=== PATIENT | male | born 1955 | race Caucasian/White ===

== ENCOUNTER 2022-06-21 08:18 | Inpatient (IN) | payer OTHER ==
[2022-06-21] VITALS (19 sets, daily range): BP systolic 71–115; BP diastolic 32–57
[~2022-06-21] VITALS: Ht 188 cm; Wt 136.9 kg
[2022-06-21] MEDS ORDERED: SODIUM CHLORIDE 0.9% 1,000 ML IV ONE ×2 (08:30)
[2022-06-21 08:57] LABS: Hematocrit 35.4 % (41.0-53.0)
[2022-06-21 08:58] LABS: Hemoglobin 11.6 g/dL (13.5-17.5); Mean Corpuscular Hemoglobin 26.8 pg (28.0-32.0); Mean Corpuscular Hgb Conc. 32.7 g/dL (32.0-36.0); Mean Corpuscular Volume 82.1 fL (80.0-100.0); Red Blood Cells 4.32 10^6/uL (4.5-5.90); Red Cell Distribution Width 16.4 % (11.8-14.3); White Blood Cell 13.9 10^3/uL (4.4-10.8)
[2022-06-21 09:10] LABS: Basophils % (manual) 0 (0.0-2.0); Blast Cells 0; Eosinophils % (manual) 0 (0-7); Myelocytes % 0; Promyelocytes % 0; Reactive Lymphocytes 0
[2022-06-21 09:12] LABS: Albumin 3.2 g/dL (3.4-5.0); Calcium 8.3 mg/dL (8.5-10.1); Potassium 3.9 mmol/L (3.5-5.1)
[2022-06-21 09:16] LABS: BUN/Creatinine Ratio 17.7; Bilirubin, Total 1.4 mg/dL (0.2-1.0); Total Protein 6.5 g/dL (6.4-8.2)
[2022-06-21 09:37] LABS: INR 1.42 (0.9-1.15); Partial Thromboplastin Time 38.7 sec (24.6-33.4)
[2022-06-21] MEDS ORDERED: dilTIAZem 25 MG/5 ML VIAL IV ONE ×2 (10:30→21:31)
[2022-06-21 11:25] LABS: Band Neutrophils % (manual) 23; Lymphocytes % (manual) 5 (10.0-50.0); Metamyelocytes % 5; Monocytes % (manual) 3 (0-12)
[2022-06-21 11:39] LABS: Alcohol, Urine < 3.0 mg/dL (0-10); Amphetamine Screen, Urine NEGATIVE (NEGATIVE); Barbiturate Scree,Urine NEGATIVE (NEGATIVE); Benzodiazephine Screen, Urine NEGATIVE (NEGATIVE); Cannabinoid Screen, Urine NEGATIVE (NEGATIVE); Cocaine Screen, Urine NEGATIVE (NEGATIVE); Opiate Scree,Urine NEGATIVE (NEGATIVE); Phencyclidine Screen, Urine NEGATIVE (NEGATIVE)
[2022-06-21 11:51] LABS: Urine Bacteria FEW /hpf (None Seen); Urine Blood 3+ /uL (Negative); Urine Mucus FEW (None Seen); Urine Specific Gravity 1.029 (1.001-1.035); Urine WBC 5 /hpf (0 - 3)
[2022-06-21] MEDS: dilTIAZem 125mg/125ml BAG KIT 100 ML IV SCH ×2 (11:53→23:36)
[2022-06-21] MEDS ORDERED: LORazepam 2MG/ML-1ML VIAL IV ONE ×2 (14:30→15:15)
[2022-06-21] MEDS ORDERED: ACETAMINOPHEN 325 MG TAB PO ONE (15:15)
[2022-06-21] MEDS ORDERED: DIGOXIN 0.25 MG TAB PO ONE (15:15)
[2022-06-21] MEDS ORDERED: MIDAZOLAM DRIP 50 mg/50mL 50 ML IV ONE (16:14)
[2022-06-21] MEDS ORDERED: SUCCINYLCHOLINE CHLORIDE 20 MG/ML 10ML VIAL IV ONE (16:15)
[2022-06-21] MEDS ORDERED: ETOMIDATE (2MG/ML) 20ML VIAL IV ONE ×2 (16:15→16:30)
[2022-06-21 16:17] LABS: Lactic Acid w/Reflex 4.3 mmol/L (0.4-2.0)
[2022-06-21] MEDS: MIDAZOLAM DRIP 50 mg/50mL 50 ML IV SCH ×2 (16:20→23:34)
[2022-06-21] MEDS: fentaNYL Drip 2500mCg/250mlNS 250 ML IV SCH ×2 (16:33→17:36)
[2022-06-21] MEDS ORDERED: NITROGLYCERIN 0.4 MG SL TAB SL PRN (16:45)
[2022-06-21] MEDS ORDERED: MORPHINE SULFATE INJ 2 MG/ml SYRG IV PRN (16:45)
[2022-06-21] MEDS ORDERED: SODIUM CHLORIDE 0.9% IV ONE (17:15)
[2022-06-21] MEDS ORDERED: AZITHROMYCIN 500MG/ 250ML 250 ML IV ONE (17:15)
[2022-06-21] MEDS ORDERED: PIPERACILLIN-TAZOB 2.25GM 50 ML IV ONE (17:15)
[2022-06-21] MEDS ORDERED: DEXTROSE (50%) 50ML SYRG IV PRN (17:45)
[2022-06-21] MEDS ORDERED: FUROSEMIDE 40 MG/4 ML VIAL IV ONE (18:00)
[2022-06-21] MEDS: ACCU-CHEK COMFORT CURVE STRIP VI SCH ×2 (18:00→23:46)
[2022-06-21] MEDS: NOREPINEPHRINE 8 MG/250ML KIT 250 ML IV SCH (18:41)
[2022-06-21] MEDS: InsuLIN REG 1unit/0.01ml Soln (100units/ml) SC SCH ×2 (18:55→23:48)
[2022-06-21] MEDS ORDERED: HEPARIN SODIUM (PORCINE) 5000 UNITS/ML 1ML VIAL SC SCH (22:00)
[2022-06-21] MEDS: SODIUM CHLORIDE 0.9% 1,000 ML IV SCH (23:09)
[2022-06-21] MEDS: PIPERACILLIN-TAZOB 3.375GM 100 ML IV SCH (23:10)
[2022-06-22] VITALS (98 sets, daily range): BP systolic 47–140; BP diastolic 29–67
[2022-06-22] MEDS ORDERED: AMIODARONE 450mg/250ml AE 250 ML IV SCH (01:00)
[2022-06-22] MEDS ORDERED: AMIODARONE HCL 150 MG in D5W 5% 100 ML IV ONE (01:00)
[2022-06-22] MEDS: PROPOFOL 100 ML IV SCH (01:00)
[2022-06-22] MEDS ORDERED: AMIODARONE HCL (50 MG/ ML) 3 ML VIAL IV ONE (01:10)
[2022-06-22] MEDS: MIDAZOLAM DRIP 50 mg/50mL 50 ML IV SCH ×5 (03:09→21:00)
[2022-06-22] MEDS: VASOPRESSIN 50 UNITS in D5W 5% 247.5 ML IV SCH (03:25)
[2022-06-22] MEDS: SODIUM CHLORIDE 0.9% 1,000 ML IV SCH (04:00)
[2022-06-22] MEDS ORDERED: ALBUMIN 5% 250 ML IV ONE (04:15)
[2022-06-22 04:35] LABS: Basophils # (auto) 0 10 ^3/uL (0-0.2); Basophils % (auto) 0.3 % (0.0-2.0); Eosinophils # (auto) 0 10 ^3/uL (0-0.8); Hematocrit 31.9 % (41.0-53.0); Hemoglobin 10.8 g/dL (13.5-17.5); Lymphocytes # (auto) 0.4 10 ^3/uL (0.4-5.4); Lymphocytes % (auto) 4.4 % (10.0-50.0); Mean Corpuscular Hemoglobin 27.8 pg (28.0-32.0); Mean Corpuscular Hgb Conc. 33.8 g/dL (32.0-36.0); Mean Corpuscular Volume 82.2 fL (80.0-100.0); Monocytes # (auto) 0.5 10 ^3/uL (0-1.3); Monocytes % (auto) 4.9 % (0.0-12.0); Neutrophils # (auto) 8.6 10 ^3/uL (1.6-8.6); Neutrophils % (auto) 90.4 % (37.0-80.0); Nucleated Red Blood Cells % 0.3 %; Red Blood Cells 3.87 10^6/uL (4.5-5.90); Red Cell Distribution Width 16.9 % (11.8-14.3); White Blood Cell 9.6 10^3/uL (4.4-10.8)
[2022-06-22] MEDS: PHENYLEPHRINE IV 250 ML IV SCH ×2 (04:38→11:23)
[2022-06-22 04:50] LABS: BUN/Creatinine Ratio 14.9; Calcium 6.8 mg/dL (8.5-10.1); Potassium 4.6 mmol/L (3.5-5.1)
[2022-06-22] MEDS: ACCU-CHEK COMFORT CURVE STRIP VI SCH ×3 (06:16→17:58)
[2022-06-22] MEDS: InsuLIN REG 1unit/0.01ml Soln (100units/ml) SC SCH ×3 (06:17→17:52)
[2022-06-22] MEDS: PIPERACILLIN-TAZOB 3.375GM 100 ML IV SCH (06:18)
[2022-06-22] MEDS ORDERED: SODIUM BICARBONATE 50ML VIAL 100 ML in SOD CHL 0.45% 1,000 ML IV SCH (06:45)
[2022-06-22] MEDS ORDERED: SODIUM BICARBONATE 8.4 % INJ 50ML VIAL IV ONE ×2 (06:57→19:30)
[2022-06-22] MEDS: AMIODARONE 450mg/250ml AE 250 ML IV SCH ×2 (07:00→22:26)
[2022-06-22] MEDS ORDERED: VANCOMYCIN PER PHARMACY 0 MG IV SCH (09:30)
[2022-06-22] MEDS ORDERED: D5W 5% IV ONE (10:00)
[2022-06-22] MEDS ORDERED: ENOXAPARIN SOD 40 MG/0.4 ML SYRINGE SC SCH (10:00)
[2022-06-22] MEDS ORDERED: DIGOXIN (250MCG/ML) 2 ML AMPULE IV ONE (10:00)
[2022-06-22] MEDS ORDERED: FUROSEMIDE 100 MG/10ML VIAL IV ONE (10:00)
[2022-06-22] MEDS ORDERED: VANCOMYCIN IV ONE (10:00)
[2022-06-22] MEDS ORDERED: PANTOPRAZOLE 40 MG/10 ML VIAL INJ IV ONE (11:00)
[2022-06-22] MEDS: NOREPINEPHRINE 8 MG/250ML KIT 250 ML IV SCH (11:54)
[2022-06-22] MEDS: LINEZOLID 600MG/300ML 300 ML IV SCH (13:20)
[2022-06-22] MEDS: SODIUM BICARBONATE 50ML VIAL 150 ML in SOD CHL 0.45% 1,000 ML IV SCH (13:30)
[2022-06-22] MEDS: PHENYLEPHRINE INJ 40 MG in SODIUM CHL 0.9% 246 ML IV SCH ×2 (14:55→18:14)
[2022-06-22] MEDS: CEFEPIME 2 GM in SODIUM CHL 0.9% 50 ML IV SCH (15:40)
[2022-06-22] MEDS ORDERED: ACETAMINOPHEN 325 MG TAB PO PRN (16:45)
[2022-06-22] MEDS: fentaNYL Drip 2500mCg/250mlNS 250 ML IV SCH (17:42)
[2022-06-22] MEDS: NOREPINEPHRINE BITARTRATE 16 MG in SODIUM CHL 0.9% 234 ML IV SCH (17:55)
[2022-06-22] MEDS: EPINEPHrine HCL 250 ML IV SCH (20:00)
[2022-06-22] MEDS: ENOXAPARIN SOD 100 MG/1 ML SYRINGE SC SCH (22:21)
[2022-06-23] VITALS (101 sets, daily range): BP systolic 93–135; BP diastolic 26–64
[2022-06-23] MEDS: ACCU-CHEK COMFORT CURVE STRIP VI SCH ×4 (00:03→17:57)
[2022-06-23] MEDS: CEFEPIME 2 GM in SODIUM CHL 0.9% 50 ML IV SCH ×2 (00:05→12:12)
[2022-06-23] MEDS: LINEZOLID 600MG/300ML 300 ML IV SCH (00:07)
[2022-06-23] MEDS: InsuLIN REG 1unit/0.01ml Soln (100units/ml) SC SCH ×4 (00:17→17:51)
[2022-06-23] MEDS: MIDAZOLAM DRIP 50 mg/50mL 50 ML IV SCH ×6 (00:55→23:18)
[2022-06-23] MEDS: PROPOFOL 100 ML IV SCH ×3 (01:00→06:40)
[2022-06-23] MEDS: PHENYLEPHRINE INJ 40 MG in SODIUM CHL 0.9% 246 ML IV SCH ×5 (01:35→20:00)
[2022-06-23] MEDS: SODIUM BICARBONATE 50ML VIAL 150 ML in SOD CHL 0.45% 1,000 ML IV SCH ×4 (02:59→21:54)
[2022-06-23] MEDS: VASOPRESSIN 50 UNITS in D5W 5% 247.5 ML IV SCH (03:00)
[2022-06-23 03:37] LABS: Basophils # (auto) 0 10 ^3/uL (0-0.2); Eosinophils # (auto) 0.3 10 ^3/uL (0-0.8); Hemoglobin 10.3 g/dL (13.5-17.5); Neutrophils # (auto) 8.5 10 ^3/uL (1.6-8.6)
[2022-06-23 03:41] LABS: Basophils % (auto) 0.3 % (0.0-2.0); Eosinophils % (auto) 2.9 % (0.0-7.0); Hematocrit 31.3 % (41.0-53.0); Lymphocytes # (auto) 0.4 10 ^3/uL (0.4-5.4); Lymphocytes % (auto) 3.7 % (10.0-50.0); Mean Corpuscular Volume 81.9 fL (80.0-100.0); Monocytes # (auto) 0.8 10 ^3/uL (0-1.3); Monocytes % (auto) 8.1 % (0.0-12.0); Red Blood Cells 3.83 10^6/uL (4.5-5.90); Red Cell Distribution Width 17.3 % (11.8-14.3)
[2022-06-23 03:52] LABS: INR 1.94 (0.9-1.15); Partial Thromboplastin Time 53.2 sec (24.6-33.4)
[2022-06-23 04:30] LABS: Albumin 2.1 g/dL (3.4-5.0); BUN/Creatinine Ratio 12.2; Potassium 4.3 mmol/L (3.5-5.1)
[2022-06-23 04:34] LABS: Bilirubin, Total 2.7 mg/dL (0.2-1.0); Total Protein 5.2 g/dL (6.4-8.2)
[2022-06-23] MEDS: fentaNYL Drip 2500mCg/250mlNS 250 ML IV SCH ×2 (05:24→17:58)
[2022-06-23] MEDS: NOREPINEPHRINE BITARTRATE 16 MG in SODIUM CHL 0.9% 234 ML IV SCH ×2 (05:45→22:00)
[2022-06-23] MEDS: EPINEPHrine HCL 250 ML IV SCH (08:45)
[2022-06-23] MEDS: PANTOPRAZOLE 40 MG/10 ML VIAL INJ IV SCH (09:37)
[2022-06-23] MEDS: ENOXAPARIN SOD 100 MG/1 ML SYRINGE SC SCH ×2 (09:37→22:04)
[2022-06-23] MEDS: AMIODARONE 450mg/250ml AE 250 ML IV SCH (13:04)
[2022-06-23] MEDS: BUMETANIDE INJECTION 12.5 MG in GIVE UN-DILUTED 0 ML IV SCH (15:50)
[2022-06-23] MEDS: DAPTOmycin 500 MG in SODIUM CHL 0.9% 50 ML IV SCH (16:28)
[2022-06-23 21:45] LABS: Protein, Urine 538.8 mg/dL (0.0-11.9)
[2022-06-24] VITALS (102 sets, daily range): BP systolic 88–134; BP diastolic 40–64
[2022-06-24] MEDS: ACCU-CHEK COMFORT CURVE STRIP VI SCH ×4 (00:27→17:11)
[2022-06-24] MEDS: CEFEPIME 2 GM in SODIUM CHL 0.9% 50 ML IV SCH ×2 (00:38→11:22)
[2022-06-24] MEDS: SODIUM BICARBONATE 50ML VIAL 150 ML in SOD CHL 0.45% 1,000 ML IV SCH ×3 (02:30→18:51)
[2022-06-24] MEDS: ALBUTEROL SULF 2.5 MG/0.5ML(0.5%) NEB SOLN NEB PRN (02:39)
[2022-06-24] MEDS: IPRATROPIUM BROM 0.5 MG/2.5ML INH SOL NEB PRN (02:39)
[2022-06-24] MEDS: MIDAZOLAM DRIP 50 mg/50mL 50 ML IV SCH ×4 (02:45→18:50)
[2022-06-24] MEDS: PHENYLEPHRINE INJ 40 MG in SODIUM CHL 0.9% 246 ML IV SCH (02:45)
[2022-06-24] MEDS: VASOPRESSIN 50 UNITS in D5W 5% 247.5 ML IV SCH (02:49)
[2022-06-24 04:18] LABS: Basophils # (auto) 0 10 ^3/uL (0-0.2); Basophils % (auto) 0.3 % (0.0-2.0); Eosinophils # (auto) 0.3 10 ^3/uL (0-0.8); Hematocrit 26.9 % (41.0-53.0); Hemoglobin 9.4 g/dL (13.5-17.5); Lymphocytes # (auto) 0.4 10 ^3/uL (0.4-5.4); Lymphocytes % (auto) 3.5 % (10.0-50.0); Mean Corpuscular Hemoglobin 28.1 pg (28.0-32.0); Mean Corpuscular Hgb Conc. 34.9 g/dL (32.0-36.0); Mean Corpuscular Volume 80.4 fL (80.0-100.0); Monocytes # (auto) 0.9 10 ^3/uL (0-1.3); Neutrophils # (auto) 10.8 10 ^3/uL (1.6-8.6); Neutrophils % (auto) 87.2 % (37.0-80.0); Nucleated Red Blood Cells % 0.2 %; Red Blood Cells 3.35 10^6/uL (4.5-5.90); Red Cell Distribution Width 17.5 % (11.8-14.3); White Blood Cell 12.4 10^3/uL (4.4-10.8)
[2022-06-24 04:38] LABS: Potassium 3.9 mmol/L (3.5-5.1)
[2022-06-24 04:46] LABS: Albumin 1.6 g/dL (3.4-5.0); BUN/Creatinine Ratio 11.3; Bilirubin, Total 3.6 mg/dL (0.2-1.0); Calcium 6.3 mg/dL (8.5-10.1); Total Protein 4.2 g/dL (6.4-8.2)
[2022-06-24] MEDS: BUMETANIDE INJECTION 12.5 MG in GIVE UN-DILUTED 0 ML IV SCH (04:48)
[2022-06-24] MEDS: AMIODARONE 450mg/250ml AE 250 ML IV SCH ×2 (04:55→18:50)
[2022-06-24] MEDS: fentaNYL Drip 2500mCg/250mlNS 250 ML IV SCH ×2 (05:51→18:51)
[2022-06-24] MEDS: InsuLIN REG 1unit/0.01ml Soln (100units/ml) SC SCH ×4 (05:58→17:12)
[2022-06-24] MEDS: PANTOPRAZOLE 40 MG/10 ML VIAL INJ IV SCH (07:54)
[2022-06-24] MEDS: ENOXAPARIN SOD 100 MG/1 ML SYRINGE SC SCH (07:54)
[2022-06-24] MEDS: EPINEPHrine HCL 250 ML IV SCH (08:03)
[2022-06-24] MEDS ORDERED: HEPARIN 1,000 UNITS/ml 1ML VIAL IV ONE (10:15)
[2022-06-24] MEDS ORDERED: HEPARIN 1,000 UNITS/ml 1ML VIAL ONE (10:21)
[2022-06-24] MEDS ORDERED: SODIUM CHL 0.9% 1000 ML BAG XX ONE (12:15)
[2022-06-24 13:46] LABS: Hepatitis C Antibody Negative (Negative)
[2022-06-24] MEDS ORDERED: EPOETIN ALFA-EPBX 10,000 UNIT/1ML VIAL SC ONE (21:00)
[2022-06-25] VITALS (104 sets, daily range): BP systolic 99–126; BP diastolic 35–58
[2022-06-25] MEDS ORDERED: PHENYLEPHRINE IV 250 ML IV ONE (00:04)
[2022-06-25] MEDS: PROPOFOL 100 ML IV SCH (01:00)
[2022-06-25] MEDS: ACCU-CHEK COMFORT CURVE STRIP VI SCH ×4 (01:05→17:06)
[2022-06-25] MEDS: InsuLIN REG 1unit/0.01ml Soln (100units/ml) SC SCH ×4 (01:05→17:05)
[2022-06-25] MEDS: VASOPRESSIN 50 UNITS in D5W 5% 247.5 ML IV SCH (03:00)
[2022-06-25 04:37] LABS: Basophils # (auto) 0 10 ^3/uL (0-0.2); Basophils % (auto) 0.3 % (0.0-2.0); Eosinophils # (auto) 0.3 10 ^3/uL (0-0.8); Eosinophils % (auto) 2.4 % (0.0-7.0); Hematocrit 26.6 % (41.0-53.0); Hemoglobin 8.9 g/dL (13.5-17.5); Lymphocytes # (auto) 0.3 10 ^3/uL (0.4-5.4); Lymphocytes % (auto) 2.9 % (10.0-50.0); Mean Corpuscular Hgb Conc. 33.5 g/dL (32.0-36.0); Mean Corpuscular Volume 80.4 fL (80.0-100.0); Monocytes # (auto) 0.7 10 ^3/uL (0-1.3); Monocytes % (auto) 6.3 % (0.0-12.0); Neutrophils # (auto) 9.5 10 ^3/uL (1.6-8.6); Neutrophils % (auto) 88.1 % (37.0-80.0); Red Blood Cells 3.31 10^6/uL (4.5-5.90); Red Cell Distribution Width 17.1 % (11.8-14.3); White Blood Cell 10.8 10^3/uL (4.4-10.8)
[2022-06-25 04:38] LABS: Albumin 1.4 g/dL (3.4-5.0); Calcium 6.9 mg/dL (8.5-10.1); Potassium 3.6 mmol/L (3.5-5.1)
[2022-06-25 04:41] LABS: BUN/Creatinine Ratio 10.6
[2022-06-25 04:44] LABS: Bilirubin, Total 4.5 mg/dL (0.2-1.0); Total Protein 4.1 g/dL (6.4-8.2)
[2022-06-25] MEDS: PHENYLEPHRINE INJ 40 MG in SODIUM CHL 0.9% 246 ML IV SCH ×2 (08:10→17:06)
[2022-06-25] MEDS: EPINEPHrine HCL 250 ML IV SCH (08:45)
[2022-06-25] MEDS ORDERED: ENOXAPARIN SOD 100 MG/1 ML SYRINGE SC SCH (10:00)
[2022-06-25] MEDS: MIDAZOLAM DRIP 50 mg/50mL 50 ML IV SCH ×4 (10:15→21:31)
[2022-06-25] MEDS: AMIODARONE 450mg/250ml AE 250 ML IV SCH ×2 (10:15→21:04)
[2022-06-25] MEDS: BUMETANIDE INJECTION 12.5 MG in GIVE UN-DILUTED 0 ML IV SCH (10:16)
[2022-06-25] MEDS: PANTOPRAZOLE 40 MG/10 ML VIAL INJ IV SCH (10:44)
[2022-06-25] MEDS: CEFEPIME 2 GM in SODIUM CHL 0.9% 50 ML IV SCH (10:44)
[2022-06-25] MEDS: NOREPINEPHRINE BITARTRATE 16 MG in SODIUM CHL 0.9% 234 ML IV SCH (10:46)
[2022-06-25] MEDS: DAPTOmycin 500 MG in SODIUM CHL 0.9% 50 ML IV SCH (14:06)
[2022-06-25] MEDS: fentaNYL Drip 2500mCg/250mlNS 250 ML IV SCH (21:24)
[2022-06-26] VITALS (107 sets, daily range): BP systolic 82–125; BP diastolic 34–58
[2022-06-26] MEDS: PROPOFOL 100 ML IV SCH (01:00)
[2022-06-26] MEDS: MIDAZOLAM DRIP 50 mg/50mL 50 ML IV SCH ×4 (01:15→16:15)
[2022-06-26] MEDS: VASOPRESSIN 50 UNITS in D5W 5% 247.5 ML IV SCH (03:00)
[2022-06-26 03:31] LABS: Lymphocytes # (auto) 0.4 10 ^3/uL (0.4-5.4)
[2022-06-26 03:37] LABS: Basophils # (auto) 0.1 10 ^3/uL (0-0.2); Monocytes # (auto) 0.7 10 ^3/uL (0-1.3); Neutrophils # (auto) 7.8 10 ^3/uL (1.6-8.6)
[2022-06-26 03:39] LABS: Basophils % (auto) 0.7 % (0.0-2.0); Eosinophils # (auto) 0.1 10 ^3/uL (0-0.8); Hematocrit 25.1 % (41.0-53.0); Hemoglobin 8.7 g/dL (13.5-17.5); Lymphocytes % (auto) 4.3 % (10.0-50.0); Mean Corpuscular Hemoglobin 28.3 pg (28.0-32.0); Mean Corpuscular Hgb Conc. 34.9 g/dL (32.0-36.0); Monocytes % (auto) 7.9 % (0.0-12.0); Neutrophils % (auto) 86.1 % (37.0-80.0); Nucleated Red Blood Cells % 0.2 %; Red Blood Cells 3.09 10^6/uL (4.5-5.90); Red Cell Distribution Width 17.3 % (11.8-14.3)
[2022-06-26 03:48] LABS: Albumin 1.3 g/dL (3.4-5.0); Calcium 7.2 mg/dL (8.5-10.1); Potassium 3.6 mmol/L (3.5-5.1)
[2022-06-26 03:49] LABS: BUN/Creatinine Ratio 10.8
[2022-06-26 03:52] LABS: Total Protein 4.1 g/dL (6.4-8.2)
[2022-06-26] MEDS: NOREPINEPHRINE BITARTRATE 16 MG in SODIUM CHL 0.9% 234 ML IV SCH (04:35)
[2022-06-26] MEDS: InsuLIN REG 1unit/0.01ml Soln (100units/ml) SC SCH ×4 (06:00→17:23)
[2022-06-26] MEDS: ACCU-CHEK COMFORT CURVE STRIP VI SCH ×4 (06:00→17:23)
[2022-06-26] MEDS: EPINEPHrine HCL 250 ML IV SCH (07:30)
[2022-06-26] MEDS: CEFEPIME 2 GM in SODIUM CHL 0.9% 50 ML IV SCH (08:31)
[2022-06-26] MEDS: PANTOPRAZOLE 40 MG/10 ML VIAL INJ IV SCH (08:31)
[2022-06-26] MEDS ORDERED: LIDOCAINE VISCOUS 2% 15ML UD ONE (09:20)
[2022-06-26] MEDS: AMIODARONE 450mg/250ml AE 250 ML IV SCH (11:47)
[2022-06-26] MEDS ORDERED: Nepro With Carb Steady 1 Liter Bottle GT SCH (12:30)
[2022-06-26] MEDS: PHENYLEPHRINE INJ 40 MG in SODIUM CHL 0.9% 246 ML IV SCH (13:32)
[2022-06-26] MEDS: IPRATROPIUM BROM 0.5 MG/2.5ML INH SOL NEB PRN (19:01)
[2022-06-26] MEDS: ALBUTEROL SULF 2.5 MG/0.5ML(0.5%) NEB SOLN NEB PRN (19:01)
[2022-06-27] VITALS (106 sets, daily range): BP systolic 65–124; BP diastolic 22–51
[2022-06-27] MEDS: ACCU-CHEK COMFORT CURVE STRIP VI SCH ×4 (00:09→17:49)
[2022-06-27] MEDS: fentaNYL Drip 2500mCg/250mlNS 250 ML IV SCH ×2 (00:39→11:15)
[2022-06-27] MEDS: PROPOFOL 100 ML IV SCH (00:40)
[2022-06-27] MEDS: NOREPINEPHRINE BITARTRATE 16 MG in SODIUM CHL 0.9% 234 ML IV SCH ×2 (01:33→16:09)
[2022-06-27] MEDS: VASOPRESSIN 50 UNITS in D5W 5% 247.5 ML IV SCH (03:00)
[2022-06-27] MEDS: MIDAZOLAM DRIP 50 mg/50mL 50 ML IV SCH ×4 (03:11→16:18)
[2022-06-27] MEDS: AMIODARONE 450mg/250ml AE 250 ML IV SCH (03:13)
[2022-06-27 03:42] LABS: Basophils # (auto) 0.1 10 ^3/uL (0-0.2); Basophils % (auto) 0.7 % (0.0-2.0); Eosinophils # (auto) 0.1 10 ^3/uL (0-0.8); Eosinophils % (auto) 0.7 % (0.0-7.0); Hematocrit 25.9 % (41.0-53.0); Hemoglobin 8.6 g/dL (13.5-17.5); Lymphocytes # (auto) 0.5 10 ^3/uL (0.4-5.4); Lymphocytes % (auto) 3.4 % (10.0-50.0); Mean Corpuscular Hemoglobin 27.3 pg (28.0-32.0); Mean Corpuscular Hgb Conc. 33.3 g/dL (32.0-36.0); Mean Corpuscular Volume 81.8 fL (80.0-100.0); Monocytes # (auto) 1.2 10 ^3/uL (0-1.3); Neutrophils # (auto) 11.8 10 ^3/uL (1.6-8.6); Neutrophils % (auto) 86.2 % (37.0-80.0); Nucleated Red Blood Cells % 0.3 %; Red Blood Cells 3.16 10^6/uL (4.5-5.90); Red Cell Distribution Width 17.4 % (11.8-14.3); White Blood Cell 13.6 10^3/uL (4.4-10.8)
[2022-06-27 04:12] LABS: Calcium 7.3 mg/dL (8.5-10.1); Potassium 4.2 mmol/L (3.5-5.1)
[2022-06-27 04:14] LABS: BUN/Creatinine Ratio 10.9
[2022-06-27] MEDS: InsuLIN REG 1unit/0.01ml Soln (100units/ml) SC SCH ×4 (06:00→17:53)
[2022-06-27] MEDS: EPINEPHrine HCL 250 ML IV SCH (08:45)
[2022-06-27] MEDS: PHENYLEPHRINE INJ 40 MG in SODIUM CHL 0.9% 246 ML IV SCH (10:10)
[2022-06-27] MEDS: PANTOPRAZOLE 40 MG/10 ML VIAL INJ IV SCH (11:54)
[2022-06-27] MEDS: CEFEPIME 2 GM in SODIUM CHL 0.9% 50 ML IV SCH (11:54)
[2022-06-27 14:33] LABS: INR 5.74 (0.9-1.15)
[2022-06-27] MEDS ORDERED: AMIODARONE HCL 200 MG TAB PO ONE (15:45)
[2022-06-27] MEDS: DAPTOmycin 500 MG in SODIUM CHL 0.9% 50 ML IV SCH (17:58)
[2022-06-27] MEDS: IPRATROPIUM BROM 0.5 MG/2.5ML INH SOL NEB PRN (18:51)
[2022-06-27] MEDS: ALBUTEROL SULF 2.5 MG/0.5ML(0.5%) NEB SOLN NEB PRN (18:51)
[2022-06-27] MEDS ORDERED: PHENYLEPHRINE IV 250 ML IV ONE (23:03)
[2022-06-27] MEDS ORDERED: ATROPINE SULFATE 1 MG/1 ML VIAL ONE (23:03)
[2022-06-27] MEDS ORDERED: PHENYLEPHRINE HCL 10 MG/ML VL ONE (23:07)
[2022-06-27] MEDS ORDERED: ALBUMIN 25% 100 ML IV ONE ×2 (23:09→23:20)
[2022-06-27] MEDS ORDERED: DOPamine 1600MCG/ML D5W 250 ML IV ONE (23:19)
[2022-06-27] MEDS ORDERED: DOPamine 1600MCG/ML D5W 250 ML IV SCH (23:30)
[2022-06-28] VITALS: BP 85/23
[2022-06-28] MEDS ORDERED: AMIODARONE HCL (50 MG/ ML) 3 ML VIAL IV ONE (00:02)
[2022-06-28] MEDS ORDERED: CALCIUM CHLOR(10%) 100MG/ML 10ML SYRINGE IV ONE (00:02)
[2022-06-28] MEDS ORDERED: LIDOCAINE 2% (LOCAL ANESTH.) PF 5ml SDV IJ ONE (00:02)
[2022-06-28] MEDS ORDERED: EPINEPHrine HCL 1 MG/10 ML SYRG IV ONE (00:02)
[2022-06-28] MEDS ORDERED: SODIUM BICARBONATE 8.4% INJ 50ML SYRINGE IV ONE (00:02)
[2022-06-28] MEDS ORDERED: AMIODARONE HCL 200 MG TAB PO SCH (10:00)
== END 2022-06-28 00:03 | DRG 870 ==
LOC: ER 08:18 → EDBD 08:18 → TELE 16:45 → ICU WEST 20:11
PROVIDERS: ADMIT Registered Nurse; ATTEND Internal Medicine
PROC: 5A1955Z Respiratory Ventilation, Greater than 96 Consecutive Hours (ICD-10-PCS; principal; 2022-06-21)
PROC: 0BH17EZ Insertion of Endotracheal Airway into Trachea, Via Natural or Artificial Opening (ICD-10-PCS; 2022-06-21)
PROC: 5A1D70Z Performance of Urinary Filtration, Intermittent, Less than 6 Hours Per Day (ICD-10-PCS; 2022-06-24)
PROC: 05HY33Z Insertion of Infusion Device into Upper Vein, Percutaneous Approach (ICD-10-PCS; 2022-06-24)
PROC: B543ZZA Ultrasonography of Right Jugular Veins, Guidance (ICD-10-PCS; 2022-06-24)
PROC: B24BZZ4 Ultrasonography of Heart with Aorta, Transesophageal (ICD-10-PCS; 2022-06-26)
PROC: 5A1D70Z Performance of Urinary Filtration, Intermittent, Less than 6 Hours Per Day (ICD-10-PCS; 2022-06-27)
DX: A41.01 Sepsis due to Methicillin susceptible Staphylococcus aureus (principal); E43 Unspecified severe protein-calorie malnutrition; I21.4 Non-ST elevation (NSTEMI) myocardial infarction; G93.41 Metabolic encephalopathy; N17.0 Acute kidney failure with tubular necrosis; R65.21 Severe sepsis with septic shock; J18.9 Pneumonia, unspecified organism; J96.01 Acute respiratory failure with hypoxia; I50.43 Acute on chronic combined systolic (congestive) and diastolic (congestive) heart failure; I13.0 Hypertensive heart and chronic kidney disease with heart failure and stage 1 through stage 4 chronic kidney disease, or unspecified chronic kidney disease; I48.20 Chronic atrial fibrillation, unspecified; E87.20 Acidosis, unspecified; E11.51 Type 2 diabetes mellitus with diabetic peripheral angiopathy without gangrene; W19.XXXA Unspecified fall, initial encounter; E66.01 Morbid (severe) obesity due to excess calories; N18.9 Chronic kidney disease, unspecified; Z20.822 Contact with and (suspected) exposure to COVID-19; E78.5 Hyperlipidemia, unspecified; D63.1 Anemia in chronic kidney disease; E86.0 Dehydration; E11.65 Type 2 diabetes mellitus with hyperglycemia; E88.09 Other disorders of plasma-protein metabolism, not elsewhere classified; I25.10 Atherosclerotic heart disease of native coronary artery without angina pectoris; D69.6 Thrombocytopenia, unspecified; E11.22 Type 2 diabetes mellitus with diabetic chronic kidney disease; Z95.1 Presence of aortocoronary bypass graft; Z87.891 Personal history of nicotine dependence; Y92.009 Unspecified place in unspecified non-institutional (private) residence as the place of occurrence of the external cause; Z89.511 Acquired absence of right leg below knee; Z95.2 Presence of prosthetic heart valve; Z68.38 Body mass index [BMI] 38.0-38.9, adult
CPT/HCPCS: 31500; 36415; 36556; 36600; 70450; 71045; 72192; 76775; 80048; 80053; 80202; 80307; 81001; 82140; 82306; 82570; 82805; 82962; 83036; 83605; 83880; 83970; 84100; 84156; 84300; 84484; 85007; 85025; 85027; 85610; 85730; 86803; 87040; 87070; 87077; 87081; 87086; 87147; 87186; 87205; 87340; 90935; 93005; 93306; 93312; 93886; 94002; 94003; 94640; 96361; 96374; 96375; C9113; G0378; J0330; J0461; J1815; J2001; J2250; J2543; J2704; J7060; P9047